=== PATIENT | female | born 1960 ===

== ENCOUNTER → 2025-09-24 08:47 | Outpatient (CLI) | payer OTHER ==
[2025-09-24 10:20] LABS: BASO % 0.9 % (0.1-1.2); EOS # 0.21 (0.04-0.54); EOS % 3.1 % (0.7-7.0); LYMPH # 1.68 (1.18-3.74); LYMPH % 24.9 % (19.3-53.1); MEAN PLATELET VOLUME 12.20 fl (9.4-12.4); MONO # 0.58 (0.24-0.82); MONO % 8.6 % (4.7-12.5); NEUT # 4.21 (1.56-6.13); NEUT % 62.2 % (34.0-71.1); RED CELL DISTRIBUTION WIDTH 14.6 % (11.6-14.4)
[2025-09-24 10:21] LABS: URINE APPEARANCE Clear; URINE BILIRRUBIN Negative (NEGATIVE); URINE BLOOD NHT; URINE COLOR Yellow; URINE GLUCOSE Negative (NEGATIVE); URINE KETONE Trace (NEGATIVE); URINE LEUKOCYTE Trace; URINE NITRATE Negative; URINE PROTEIN Trace (NEGATIVE); URINE UROBILINOGEN 1.0 E.U./dl
[2025-09-24 10:26] LABS: URINE BACTERIA 42.3 uL (0.0-1933); URINE EPITHELIAL CELLS 5.6 uL (0.0-38.8); URINE RBC 34.2 uL (0.0-20.8); URINE WBC 13.0 uL (0.0-23.2)
[2025-09-24 10:29] LABS: URINE CAST 0.14 uL (0.0-1.40)
[2025-09-24 11:08] LABS: ALT/SGPT 29.0 U/L (12-78); AST/SGOT 14.0 U/L (15-37); BILIRUBIN TOTAL 0.5 mg/dL (0.3-1.2); BUN CREA RATIO 22.0 (7.0-25.0); CREATININE SERUM 0.59 mg/dL (0.55-1.02); FE 49.0 ug/dl (50-170); GFR 101.98; GLOBULINA 3.8 G/DL (2.4-3.5); GLUCOSE FASTING 88.0 mg/dL (65-100); OSMOLALITY SERUM 285.0 MOSM/KG (275-295)
== END | disposition home or self-care (01) ==
LOC: LAB 08:47
DX: D64.9 Anemia, unspecified (principal); N39.0 Urinary tract infection, site not specified; C18.7 Malignant neoplasm of sigmoid colon

== ENCOUNTER 2025-09-25 10:16 | Outpatient (CLI) | payer OTHER | END 2025-09-25 10:20 | disposition home or self-care (01) | LOC: MRI 10:16 | DX: C18.7 Malignant neoplasm of sigmoid colon (principal) | CPT/HCPCS: 72196; Q9965 ==